=== PATIENT | female | born 1960 | race Caucasian/White ===

== ENCOUNTER 2018-04-08 19:41 | Emergency (ER) | payer MEDICAID ==
[~2018-04-08] VITALS: Ht 172.7 cm; Wt 70.3 kg
[2018-04-08] MEDS ORDERED: PAROXETINE HCL20 MG PO (19:52)
[2018-04-08] MEDS ORDERED: MECLIZINE HCL25 MG ORAL (19:52)
[2018-04-08 20:02] VITALS: BP 94/55
[2018-04-08 20:38] LABS: ANION GAP 7 mmol/L (5-15); BLOOD UREA NITROGEN 17 mg/dL (7-18); CALCIUM 8.8 MG/DL (8.5-10.1); CARBON DIOXIDE 28 MMOL/L (21-32); CHLORIDE 106 MMOL/L (98-107); CREATININE 1.1 MG/DL (0.55-1.30); POTASSIUM 3.7 MMOL/L (3.5-5.1); SODIUM 141 MMOL/L (136-145)
[2018-04-08 20:47] LABS: BASOPHILS % (AUTO) 1.2 % (0.0-2.0); EOSINOPHILS % (AUTO) 0.9 % (0.0-3.0); HEMATOCRIT 33.9 % (37.0-47.0); HEMOGLOBIN 12.2 G/DL (12.0-16.0); LYMPHOCYTES % (AUTO) 38.5 % (20.0-45.0); MEAN CORPUSCULAR VOLUME 93 FL (80-99); MONOCYTES % (AUTO) 7.9 % (1.0-10.0); NEUTROPHILS % (AUTO) 51.5 % (45.0-75.0); PLATELET COUNT 167 K/UL (150-450); RED BLOOD COUNT 3.64 M/UL (4.20-5.40); RED CELL DISTRIBUTION WIDTH 11.4 % (11.6-14.8); WHITE BLOOD COUNT 6.5 K/UL (4.8-10.8)
[2018-04-08] MEDS ORDERED: Meclizine 25mg tab ORAL ONE (21:00)
[2018-04-08 21:05] LABS: ALANINE AMINOTRANSFERASE 35 U/L (12-78); ALBUMIN 3.5 G/DL (3.4-5.0); ALBUMIN/GLOBULIN RATIO 1.2 (1.0-2.7); ALKALINE PHOSPHATASE 56 U/L (46-116); ASPARTATE AMINO TRANSFERASE 25 U/L (15-37); BILIRUBIN,TOTAL 0.2 MG/DL (0.2-1.0); CKMB 0.7 NG/ML (0.0-3.6); CREATINE KINASE 44 U/L (26-308)
[2018-04-08 21:30] VITALS: BP 101/60
--- NOTE | 2018-04-08 21:41 | Emergency Room Report ---
History of Present Illness General Chief Complaint: Syncope Source: Patient Present Illness HPI This patient has a history of vertigo. She has had 3 admissions where she has undergone extensive testing to include MRI brain and other testing for her vertigo. She is also had a previous syncopal episode that she was admitted for. She states she is on meclizine. She states that all of her workups have been normal. She was having vertigo today. However, she was outside in the heat all day and not drinking water and she states that while she was out and hot and she fainted. She denies recent illness. She denies cough or congestion. She denies chest pain or palpitations. She does plan on following up with an fisher e[facility] spear because her symptoms have continued for the past month. She does use meclizine at home. She has no other complaints. Allergies: Coded Allergies: No Known Allergies (Unverified , 04/08/18) Patient History Past Medical History: see triage record, other - Vertigo Social History: Denies: smoking, alcohol use, drug use Now: No Reviewed Nursing Documentation: PMH: Agreed; PSxH: Agreed Nursing Documentation-PMH History Of Psychiatric Problem: Yes - DEPRESSION Review of Systems All Other Systems: negative except mentioned in HPI Physical Exam Vital Signs Date Time Temp Pulse Resp B/P (MAP) Pulse Ox O2 Delivery O2 Flow Rate FiO2 04/08/18 19:34 98.0 96 16 106/70 98 Room Air 98.1 Sp02 EP Interpretation: reviewed, normal General Appearance: no apparent distress, alert, GCS 15, non-toxic Head: normocephalic, atraumatic Eyes: bilateral eye normal inspection, bilateral eye PERRL ENT: hearing grossly normal, normal pharynx, no angioedema, normal voice Neck: full range of motion, supple/symm/no masses Respiratory: chest non-tender, lungs clear, normal breath sounds, no respiratory distress, no retraction, no accessory muscle use, speaking full sentences Cardiovascular #1: regular rate, rhythm, no edema Gastrointestinal: normal bowel sounds, non tender, soft, non-distended, no guarding, no rebound Rectal: deferred Musculoskeletal: back normal, gait/station normal, normal range of motion, non- tender Neurologic: alert, oriented x3, responsive, motor strength/tone normal, sensory intact, speech normal Psychiatric: judgement/insight normal, memory normal, mood/affect normal, no suicidal/homicidal ideation Skin: normal color, no rash, warm/dry, well hydrated Medical Decision Making Diagnostic Impression: Primary Impression: Syncope Additional Impression: Vertigo ER Course I suspect the syncope that the patient is presenting with is a nonemergent in etiology. The patient does have a history of vertigo and states that this is primarily the etiology of her symptoms. Regarding the history, the patient has no history of structural heart disease or coronary artery disease, no family history of sudden , has no shortness of breath, and the syncope is not exertional. On physical exam, the patient is not hypotensive, has no findings of CHF, and no significant cardiac murmur suggestive of valvular heart disease or cardiac outflow obstruction. The patient reports no history of seizure or head trauma. EKG showed no evidence of concerning findings of QT prolongation, Brugada syndrome or significant ST changes suggestive of acute ischemia, dysrhythmias or significant conduction abnormalities. On laboratory evaluation , blood sugar was normal and the patient is not anemic. The patient was counseled that, though unlikely, the possibility of an emergent cause of syncope may be present and that the patient should return immediately if symptoms persist or worsen. I believe the patient is stable for discharge to followup with her PMD and an ENT specialist for further workup. Laboratory Tests Test 04/08/18 19:40 White Blood Count 6.5 K/UL (4.8-10.8) Red Blood Count 3.64 M/UL (4.20-5.40) L Hemoglobin 12.2 G/DL (12.0-16.0) Hematocrit 33.9 % (37.0-47.0) L Mean Corpuscular Volume 93 FL (80-99) Mean Corpuscular Hemoglobin 33.4 PG (27.0-31.0) H Mean Corpuscular Hemoglobin Concent 35.9 G/DL (32.0-36.0) Red Cell Distribution Width 11.4 % (11.6-14.8) L Platelet Count 167 K/UL (150-450) Mean Platelet Volume 7.7 FL (6.5-10.1) Neutrophils (%) (Auto) 51.5 % (45.0-75.0) Lymphocytes (%) (Auto) 38.5 % (20.0-45.0) Monocytes (%) (Auto) 7.9 % (1.0-10.0) Eosinophils (%) (Auto) 0.9 % (0.0-3.0) Basophils (%) (Auto) 1.2 % (0.0-2.0) Sodium Level 141 MMOL/L (136-145) Potassium Level 3.7 MMOL/L (3.5-5.1) Chloride Level 106 MMOL/L (98-107) Carbon Dioxide Level 28 MMOL/L (21-32) Anion Gap 7 mmol/L (5-15) Blood Urea Nitrogen 17 mg/dL (7-18) Creatinine 1.1 MG/DL (0.55-1.30) Estimate Glomerular Filtration Rate 51.3 mL/min (>60) Glucose Level 109 MG/DL (74-106) H Calcium Level 8.8 MG/DL (8.5-10.1) Total Bilirubin 0.2 MG/DL (0.2-1.0) Aspartate Amino Transferase (AST) 25 U/L (15-37) Alanine Aminotransferase (ALT) 35 U/L (12-78) Alkaline Phosphatase 56 U/L (46-116) Total Creatine Kinase 44 U/L (26-308) Creatine Kinase MB 0.7 NG/ML (0.0-3.6) Creatine Kinase MB Relative Index 1.5 Troponin I 0.006 ng/mL (0.000-0.056) Total Protein 6.5 G/DL (6.4-8.2) Albumin 3.5 G/DL (3.4-5.0) Globulin 3.0 g/dL Albumin/Globulin Ratio 1.2 (1.0-2.7) EKG Diagnostic Results Rate: normal Rhythm: NSR ST Segments: no acute changes Rhythm Strip Diag. Results EP Interpretation: yes Rate: 80's Rhythm: NSR, no PVC's, no ectopy Chest X-Ray Diagnostic Results Chest X-Ray Diagnostic Results : Chest X-Ray Ordered: Yes # of Views/Limited/Complete: 1 View Indication: Other - syncope EP Interpretation: Yes Interpretation: no consolidation, no effusion, no pneumothorax, no acute cardiopulmonary disease Impression: No acute disease Electronically Signed by: Melvina Last Vital Signs Date Time Temp Pulse Resp B/P (MAP) Pulse Ox O2 Delivery O2 Flow Rate FiO2 04/08/18 20:02 98.5 82 16 94/55 94 Room Air 98.5 Status: improved Disposition: HOME, SELF-CARE Condition: Improved Referrals: [facility] (PCP) Patient Instructions: Syncope Mariam Reza DO Apr 08, 2018 21:41
[2018-04-08 22:02] VITALS: BP 100/64
[2018-04-08 22:04] VITALS: BP 100/64
--- NOTE | 2018-04-09 08:57 | Diagnostic Imaging Report ---
Indication: Chest pain Technique: One view of the chest Comparison: none Findings: Lungs and pleural spaces are clear. Heart size is normal Impression: No acute process
--- NOTE | 2018-04-09 12:18 | Cardiology Report ---
APPROVED REPORT EKG Measurement Heart [id number] Normal sinus rhythm Normal ECG
== END 2018-04-08 22:04 | disposition home or self-care (01) ==
LOC: EDBD 19:41 → EMR 20:15
DX: R55 Syncope and collapse (principal); R42 Dizziness and giddiness; F32.9 Major depressive disorder, single episode, unspecified
CPT/HCPCS: 36415; 71045; 80053; 82550; 82553; 84484; 85025; 93005; 99283

== ENCOUNTER 2018-06-22 11:54 | Emergency (ER) | payer MEDICAID, OTHER ==
[~2018-06-22] VITALS: Ht 172.7 cm; Wt 68.0 kg
[~2018-06-22 11:54] MED LIST: MECLIZINE HCL25 MG ORAL; PAROXETINE HCL20 MG PO
[2018-06-22] MEDS ORDERED: HYDROXYZINE HCL25 M1 PO (12:01)
[2018-06-22] MEDS ORDERED: COLACE100 MG ORAL (12:01)
[2018-06-22] MEDS ORDERED: MAVYRET PO (12:01)
[2018-06-22] MEDS ORDERED: CALCIUM + D SO1 EACH PO (12:01)
[2018-06-22] MEDS ORDERED: IMITREX50 MG ORAL (12:01)
--- NOTE | 2018-06-22 12:22 | Emergency Room Report ---
History of Present Illness General Chief Complaint: Pain Source: Patient Present Illness HPI 58 yo F with a h/o vertigo and htn presents with right thigh twitching that started about 3 hours ago while she was lying in bed. She also reports both feet hurt, but no history of trauma. She reports she's had similar twitching of her right thigh many years ago and she was told it was likely restless leg syndrome. She denies, Recent Travel, Recent Immobilization, recent surgery. Allergies: Coded Allergies: No Known Allergies (Unverified , 04/08/18) Patient History Past Medical History: see triage record Last Menstrual Period: 2003 Reviewed Nursing Documentation: PMH: Agreed; PSxH: Agreed Nursing Documentation-PMH Past Medical History: No History, Except For Physical Exam Vital Signs Date Time Temp Pulse Resp B/P (MAP) Pulse Ox O2 Delivery O2 Flow Rate FiO2 06/22/18 11:35 98.3 76 18 146/94 95 Room Air 98.2 Medical Decision Making Diagnostic Impression: Primary Impression: Muscle spasm ER Course Patient with unremarkable labs, still with some twitching in her right anterior thigh, will discharge as CPK, metabolic panel, unremarkable, no sign symptoms of DVT, just this muscle spasm. Will discharge with muscle relaxants, recommend follow-up with a neurologist. Last Vital Signs Date Time Temp Pulse Resp B/P (MAP) Pulse Ox O2 Delivery O2 Flow Rate FiO2 06/22/18 11:35 98.3 76 18 146/94 95 Room Air 98.2 Disposition: HOME, SELF-CARE Condition: Stable MIRA MOHAN M.D Jun 22, 2018 12:22
[2018-06-22] MEDS ORDERED: Ketorolac 30mg Inj IM ONE (12:30)
[2018-06-22] MEDS ORDERED: Cyclobenzaprine 10mg Tab ORAL ONE (12:30)
[2018-06-22 12:51] LABS: EOSINOPHILS % (AUTO) 1.3 % (0.0-3.0); HEMATOCRIT 39.7 % (37.0-47.0); LYMPHOCYTES % (AUTO) 41.3 % (20.0-45.0); MEAN CORPUSCULAR VOLUME 91 FL (80-99); MONOCYTES % (AUTO) 6.2 % (1.0-10.0); NEUTROPHILS % (AUTO) 50.1 % (45.0-75.0); PLATELET COUNT 180 K/UL (150-450); RED BLOOD COUNT 4.38 M/UL (4.20-5.40); RED CELL DISTRIBUTION WIDTH 10.5 % (11.6-14.8); WHITE BLOOD COUNT 5.3 K/UL (4.8-10.8)
[2018-06-22 12:53] VITALS: BP 146/94
[2018-06-22 13:06] LABS: ANION GAP 6 mmol/L (5-15); BLOOD UREA NITROGEN 16 mg/dL (7-18); CALCIUM 8.9 MG/DL (8.5-10.1); CARBON DIOXIDE 29 MMOL/L (21-32); CHLORIDE 106 MMOL/L (98-107); CREATININE 0.9 MG/DL (0.55-1.30); POTASSIUM 4.4 MMOL/L (3.5-5.1); SODIUM 141 MMOL/L (136-145)
[2018-06-22 13:13] LABS: ALANINE AMINOTRANSFERASE 22 U/L (12-78); ALBUMIN 3.5 G/DL (3.4-5.0); ALKALINE PHOSPHATASE 56 U/L (46-116); ASPARTATE AMINO TRANSFERASE 16 U/L (15-37); BILIRUBIN,TOTAL 0.3 MG/DL (0.2-1.0); CREATINE KINASE 47 U/L (26-308)
[2018-06-22] MEDS ORDERED: CYCLOBENZAPRINE10 MG ORAL (14:01)
[2018-06-22 14:07] VITALS: BP 142/89
[2018-06-22 14:10] VITALS: BP 142/89
== END 2018-06-22 14:30 | disposition home or self-care (01) ==
LOC: EDBD 11:54 → EMR 14:15
DX: M62.838 Other muscle spasm (principal)
CPT/HCPCS: 36415; 80053; 82550; 85025; 96372; 99284; J1885

== ENCOUNTER 2018-06-27 14:35 | Emergency (ER) | payer OTHER ==
[~2018-06-27] VITALS: Ht 172.7 cm; Wt 72.6 kg
[~2018-06-27 14:35] MED LIST changes: +CALCIUM + D SO1 EACH PO; +COLACE100 MG ORAL; +CYCLOBENZAPRINE10 MG ORAL; +HYDROXYZINE HCL25 M1 PO; +IMITREX50 MG ORAL; +MAVYRET PO
--- NOTE | 2018-06-27 14:51 | Emergency Room Report ---
History of Present Illness General Chief Complaint: Syncope Source: Patient Present Illness HPI Patient presents with paramedics for complaint of syncopal episode However on further discussion patient reports having fairly significant dizziness initially reports that she has history of vertigo Essentially this has been worsening over the past several months and patient is getting referral to neurology follow-up Prior to presentation patient again had a significant dizziness she was walking to the restroom when she had a lapse of consciousness Upon awaking had pain to the left small toe Injury to the left elbow and left knee Denies any headache denies any neck pain Denies any focal weakness Allergies: Coded Allergies: No Known Allergies (Unverified , 04/08/18) Patient History Past Medical History: see triage record Pertinent Family History: none Now: No Reviewed Nursing Documentation: PMH: Agreed; PSxH: Agreed Nursing Documentation-PMH Past Medical History: No History, Except For Review of Systems All Other Systems: negative except mentioned in HPI Physical Exam Vital Signs Date Time Temp Pulse Resp B/P (MAP) Pulse Ox O2 Delivery O2 Flow Rate FiO2 06/27/18 14:33 98 18 128/72 99 Room Air Sp02 EP Interpretation: reviewed, normal General Appearance: well appearing, no apparent distress Head: normocephalic, atraumatic Eyes: bilateral eye PERRL, bilateral eye EOMI ENT: hearing grossly normal, normal pharynx, TMs + canals normal, uvula midline Neck: full range of motion, supple, no meningismus, no bony tend Respiratory: lungs clear, normal breath sounds, no rhonchi, no respiratory distress, no retraction, no accessory muscle use Cardiovascular #1: normal peripheral pulses, regular rate, rhythm, no edema, no gallop, no JVD, no murmur Gastrointestinal: normal bowel sounds, non tender, soft, no mass, no organomegaly, non-distended, no guarding, no hernia, no pulsatile mass, no rebound Genitourinary: no CVA tenderness Musculoskeletal: other - Abrasion to lateral left Lateral elbow, full range of motion intact however, abrasion to left knee, again no hematoma or swelling, Discomfort on palpation left small toe neurovascularly intact Neurologic: oriented x3, responsive, floor cashier III-XII nml as tested, motor strength/ tone normal, sensory intact Psychiatric: mood/affect normal Skin: warm/dry, palpation normal, other - As above Lymphatic: normal inspection, no adenopathy Medical Decision Making Diagnostic Impression: Primary Impression: Syncope Additional Impression: Toe fracture ER Course Given the appearance of the digits and the foot x-ray imaging is obtained patient does have fractures on the fifth and fourth proximal phalanx The fifth digit does have some lateral angulation Therefore digital block was performed and reduction clinically performed Patient is provided a post op shoe Will have nonweightbearing on that foot Was provided with podiatry follow-up And will have close outpatient evaluation Other X-Ray Diagnostic Results Other X-Ray Diagnostic Results : X-Ray ordered: Left foot # of Views/Limited Vs Complete: 4 View Indication: Pain EP Interpretation: Yes Interpretation: no soft tissue swelling, other - Fifth and fourth phalangeal fracture Impression: Other - Acute fractures fourth and fifth phalanx Electronically Signed by: Jordan Andrews DO Last Vital Signs Date Time Temp Pulse Resp B/P (MAP) Pulse Ox O2 Delivery O2 Flow Rate FiO2 06/27/18 14:33 98 18 128/72 99 Room Air Status: improved Disposition: HOME, SELF-CARE Condition: Improved Additional Instructions: Patient is provided with the discharge instructions notified to follow up with primary doctor in the next 2-3 days otherwise return to the er with any worsening symptoms. Please note that this report is being documented using [employer] technology. This can lead to erroneous entry secondary to incorrect interpretation by the dictating instrument. Jordan Andrews DO Jun 27, 2018 14:51
[2018-06-27 15:15] VITALS: BP 114/76
[2018-06-27] MEDS ORDERED: Lidocaine 1% MPF 10mg/ml 5ml INJ ONE (15:30)
[2018-06-27 16:05] VITALS: BP 114/76
--- NOTE | 2018-06-28 10:46 | Diagnostic Imaging Report ---
Indication: Foot pain Comparison: None Findings: 3 views of the left foot were obtained. Acute fractures involving the distal aspects of the fourth and fifth proximal phalanges are demonstrated. No other fractures are identified. Soft tissue swelling noted. IMPRESSION: Acute fractures of the fourth and fifth proximal phalanges
--- NOTE | 2018-06-30 08:53 | Cardiology Report ---
APPROVED REPORT EKG Measurement Heart [id number] Normal sinus rhythm Normal ECG
== END 2018-06-27 16:05 | disposition home or self-care (01) ==
LOC: EDBD 14:35 → EMR 15:00
DX: R55 Syncope and collapse (principal); S62.615A Displaced fracture of proximal phalanx of left ring finger, initial encounter for closed fracture; S62.617A Displaced fracture of proximal phalanx of left little finger, initial encounter for closed fracture; X58.XXXA Exposure to other specified factors, initial encounter; Y92.9 Unspecified place or not applicable; R42 Dizziness and giddiness
CPT/HCPCS: 93005; 99283

== ENCOUNTER 2018-12-08 14:07 | Emergency (ER) | payer OTHER ==
[~2018-12-08] VITALS: Ht 172.7 cm; Wt 65.8 kg
[2018-12-08] MEDS ORDERED: NKM (14:22)
[2018-12-08] MEDS ORDERED: Lidocaine 2% Visc 15ml soln ORAL ONE (14:30)
[2018-12-08] MEDS ORDERED: Dicyclomine HCl 10mg/5ml oral soln ORAL ONE (14:30)
[2018-12-08] MEDS ORDERED: Mylanta II UD 30ml ORAL ONE (14:30)
[2018-12-08 14:55] VITALS: BP 98/71
--- NOTE | 2018-12-08 14:56 | Emergency Room Report ---
History of Present Illness General Chief Complaint: Diarrhea Source: Patient Present Illness HPI 58-year-old female presents ED for evaluation. Patient complaining of diarrhea for the last 3 days. States that she may have consumed a contaminated batch of avocadoes that she saw on the news. Denies any abdominal pain. Denies any nausea or vomiting. Notes multiple episodes of diarrhea. Denies recent travel or recent antibiotic use. No other aggravating relieving factors. Denies any other associated symptoms Allergies: Coded Allergies: No Known Allergies (Unverified , 04/08/18) Patient History Past Medical History: none Past Surgical History: none Pertinent Family History: none Social History: Denies: smoking, alcohol use, drug use Now: No Immunizations: UTD Reviewed Nursing Documentation: PMH: Agreed; PSxH: Agreed Review of Systems All Other Systems: negative except mentioned in HPI Physical Exam Vital Signs Date Time Temp Pulse Resp B/P (MAP) Pulse Ox O2 Delivery O2 Flow Rate FiO2 12/08/18 14:20 98.2 68 19 94/66 95 Room Air Sp02 EP Interpretation: reviewed, normal General Appearance: no apparent distress, alert, GCS 15, non-toxic Head: normocephalic, atraumatic Eyes: bilateral eye normal inspection, bilateral eye PERRL ENT: hearing grossly normal, normal pharynx, no angioedema, normal voice Neck: full range of motion, supple/symm/no masses Respiratory: chest non-tender, lungs clear, normal breath sounds, speaking full sentences Cardiovascular #1: regular rate, rhythm, no edema Cardiovascular #2: 2+ carotid (R), 2+ carotid (L), 2+ radial (R), 2+ radial (L) , 2+ dorsalis pedis (R), 2+ dorsalis pedis (L) Gastrointestinal: normal bowel sounds, non tender, soft, non-distended, no guarding, no rebound Rectal: deferred Genitourinary: normal inspection, no CVA tenderness Musculoskeletal: back normal, gait/station normal, normal range of motion, non- tender Neurologic: alert, oriented x3, responsive, motor strength/tone normal, sensory intact, speech normal Psychiatric: judgement/insight normal, memory normal, mood/affect normal, no suicidal/homicidal ideation Reflexes: 3+ bicep (R), 3+ bicep (L), 3+ tricep (R), 3+ tricep (L), 3+ knee (R) , 3+ knee (L) Skin: normal color, no rash, warm/dry, well hydrated Lymphatic: no adenopathy Medical Decision Making Diagnostic Impression: Primary Impression: Diarrhea Qualified Codes: R19.7 - Diarrhea, unspecified ER Course Hospital Course 58-year-old F presents to ED with diarrhea x 3 days differential diagnosis: gastritis, SBO, cholecystits, gastroenteritis Clinical course Patient placed on stretcher. On court monitor. After initial history and physical I ordered labs, IV fluids, pepcid, GI cocktail Labs - no leukocytosis, electrolytes ok, LFTs normal, UA unremarkable Upon reassessment, patient states she feels better. Discussed findings with patient. Consideration for Listeria infection versus gastroenteritis. Patient is afebrile, nontoxic appearing. Unremarkable labs. I see no reason to start antibiotics at this time. Patient agrees We'll treat symptomatically. Safe for discharge close outpatient follow-up. States she has a PMD I feel this is a highly complex case requiring extensive working including EKG/ Rhythm strip, Xray/CT/US, Blood/urine lab work, repeat exams while in ED, and administration of strong opiates/narcotics for pain control, admission to hospital or close patient follow up. Diagnosis - diarrhea Stable and discharged to home with prescriptions for zantac, zofran, bentyl. Followup with PMD. Return to ED if symptoms recur or worsen Labs Test 12/08/18 14:32 White Blood Count 5.5 K/UL (4.8-10.8) Red Blood Count 4.29 M/UL (4.20-5.40) Hemoglobin 13.6 G/DL (12.0-16.0) Hematocrit 38.6 % (37.0-47.0) Mean Corpuscular Volume 90 FL (80-99) Mean Corpuscular Hemoglobin 31.8 PG (27.0-31.0) Mean Corpuscular Hemoglobin Concent 35.3 G/DL (32.0-36.0) Red Cell Distribution Width 11.5 % (11.6-14.8) Platelet Count 191 K/UL (150-450) Mean Platelet Volume 8.1 FL (6.5-10.1) Neutrophils (%) (Auto) 48.2 % (45.0-75.0) Lymphocytes (%) (Auto) 41.4 % (20.0-45.0) Monocytes (%) (Auto) 7.4 % (1.0-10.0) Eosinophils (%) (Auto) 1.4 % (0.0-3.0) Basophils (%) (Auto) 1.5 % (0.0-2.0) Urine Color Yellow Urine Appearance Clear Urine pH 7 (4.5-8.0) Urine Specific [place] 1.010 (1.005-1.035) Urine Protein Negative (NEGATIVE) Urine Glucose (UA) Negative (NEGATIVE) Urine Ketones Negative (NEGATIVE) Urine Blood Negative (NEGATIVE) Urine Nitrite Negative (NEGATIVE) Urine Bilirubin Negative (NEGATIVE) Urine Urobilinogen Normal MG/DL (0.0-1.0) Urine Leukocyte Esterase 1+ (NEGATIVE) Urine RBC 0-2 /HPF (0 - 2) Urine WBC 0-2 /HPF (0 - 2) Urine Squamous Epithelial Cells Few /LPF (NONE/OCC) Urine Bacteria Few /HPF (NONE) Sodium Level 137 MMOL/L (136-145) Potassium Level 4.3 MMOL/L (3.5-5.1) Chloride Level 100 MMOL/L (98-107) Carbon Dioxide Level 29 MMOL/L (21-32) Anion Gap 8 mmol/L (5-15) Blood Urea Nitrogen 16 mg/dL (7-18) Creatinine 1.0 MG/DL (0.55-1.30) Estimat Glomerular Filtration Rate 57.4 mL/min (>60) Glucose Level 93 MG/DL (74-106) Calcium Level 9.5 MG/DL (8.5-10.1) Total Bilirubin 0.5 MG/DL (0.2-1.0) Aspartate Amino Transf (AST/SGOT) 19 U/L (15-37) Alanine Aminotransferase (ALT/SGPT) 22 U/L (12-78) Alkaline Phosphatase 52 U/L (46-116) Total Protein 7.6 G/DL (6.4-8.2) Albumin 4.0 G/DL (3.4-5.0) Globulin 3.6 g/dL Albumin/Globulin Ratio 1.1 (1.0-2.7) Lipase 222 U/L (73-393) Last Vital Signs Date Time Temp Pulse Resp B/P (MAP) Pulse Ox O2 Delivery O2 Flow Rate FiO2 12/08/18 14:20 98.2 68 19 94/66 95 Room Air Status: improved Disposition: HOME, SELF-CARE Condition: Stable Scripts Ranitidine Hcl* (ZANTAC*) 150 Mg Tablet 150 MG ORAL TWICE A DAY, #30 TAB Prov: Aldair Rendon MD 12/08/18 Dicyclomine Hcl* (DICYCLOMINE HCL*) 10 Mg Capsule 10 MG PO QID for 5 Days, CAP Prov: Aldair Rendon MD 12/08/18 Ondansetron Odt* (ZOFRAN ODT*) 4 Mg Tab.rapdis 4 MG BC EVERY 8 HOURS, #10 TAB 0 Refills Prov: Aldair Rendon MD 12/08/18 Referrals: [facility] (PCP) Aldair Rendon MD Dec 08, 2018 14:56
[2018-12-08 15:08] LABS: BASOPHILS % (AUTO) 1.5 % (0.0-2.0); EOSINOPHILS % (AUTO) 1.4 % (0.0-3.0); HEMATOCRIT 38.6 % (37.0-47.0); HEMOGLOBIN 13.6 G/DL (12.0-16.0); LYMPHOCYTES % (AUTO) 41.4 % (20.0-45.0); MEAN CORPUSCULAR VOLUME 90 FL (80-99); MONOCYTES % (AUTO) 7.4 % (1.0-10.0); NEUTROPHILS % (AUTO) 48.2 % (45.0-75.0); PLATELET COUNT 191 K/UL (150-450); RED BLOOD COUNT 4.29 M/UL (4.20-5.40); RED CELL DISTRIBUTION WIDTH 11.5 % (11.6-14.8); WHITE BLOOD COUNT 5.5 K/UL (4.8-10.8)
[2018-12-08 15:11] LABS: APPEARANCE,URINE CLEAR; BILIRUBIN, URINE NEGATIVE (NEGATIVE); GLUCOSE, URINE (UA) NEGATIVE (NEGATIVE); KETONES,URINE NEGATIVE (NEGATIVE); LEUKOCYTE ESTERASE ,URINE 1+ (NEGATIVE); NITRITE,URINE NEGATIVE (NEGATIVE); PH,URINE 7 (4.5-8.0); PROTEIN,URINE NEGATIVE (NEGATIVE); UROBILINOGEN,URINE NORMAL MG/DL (0.0-1.0)
[2018-12-08 15:15] LABS: COLOR,URINE YELLOW
[2018-12-08 15:22] LABS: ANION GAP 8 mmol/L (5-15); BLOOD UREA NITROGEN 16 mg/dL (7-18); CALCIUM 9.5 MG/DL (8.5-10.1); CARBON DIOXIDE 29 MMOL/L (21-32); CHLORIDE 100 MMOL/L (98-107); POTASSIUM 4.3 MMOL/L (3.5-5.1); SODIUM 137 MMOL/L (136-145)
[2018-12-08 15:26] LABS: ALANINE AMINOTRANSFERASE 22 U/L (12-78); ALBUMIN/GLOBULIN RATIO 1.1 (1.0-2.7); ALKALINE PHOSPHATASE 52 U/L (46-116); ASPARTATE AMINO TRANSFERASE 19 U/L (15-37); BILIRUBIN,TOTAL 0.5 MG/DL (0.2-1.0)
[2018-12-08] MEDS ORDERED: ONDANSETRON ODT4 MG BC (15:57)
[2018-12-08] MEDS ORDERED: RANITIDINE HCL150 MG ORAL (15:57)
[2018-12-08] MEDS ORDERED: DICYCLOMINE HCL10 MG PO (15:57)
[2018-12-08 16:04] VITALS: BP 98/71
== END 2018-12-08 16:18 | disposition home or self-care (01) ==
LOC: EMR 14:33
DX: R19.7 Diarrhea, unspecified (principal)
CPT/HCPCS: 36415; 80053; 81003; 83690; 85025; 96361; 96374; 99284; S0028